=== PATIENT | male | born 1995 | race Caucasian/White ===

== ENCOUNTER 2018-07-31 12:10 | Emergency (ER) | payer OTHER ==
[~2018-07-31 12:10] MED LIST: HYDR-653 PO; INSU100I SQ; INSU100I28 SQ; LISI5TAB25 PO
--- NOTE | 2018-07-31 12:19 | ER Report ---
History and Physical Time Seen By MD: 12:19 Hx. of Stated Complaint: pt has sharp right sided back and chest pain. pt reports trouble breathing. HPI/ROS CHIEF COMPLAINT: Chest pain HISTORY OF PRESENT ILLNESS: 23-year-old male patient presents to emergency room with complaint of right-sided chest pain. Patient states pain has been going on for approximately one hour prior to arrival. Patient states that he has not take n any medication for this. He states that he was in the process of cleaning his room and had pain that started in his back and radiated to the chest. Patient states the pain in his chest and his back or tight. He denies having any shortness of breath. He denies having any fevers, chills, nausea, vomiting or diarrhea. Patient states pain is worse when he takes a deep breath. Patient denies any history of any heart or lung problems. REVIEW OF SYSTEMS: Respiratory: As noted above Cardiovascular: As noted above Gastrointestinal: No vomiting, no abdominal pain. Musculoskeletal: No back pain. Allergies: Coded Allergies: No Known Drug Allergies (Unverified , 11/20/14) Home Meds Active Scripts Cyclobenzaprine Hcl (CYCLOBENZAPRINE HCL) 10 Mg Tablet, 10 MG PO TID PRN for MUSCLE SPASMS, #15 TAB Prov:LOU LI 07/31/18 Hydrocodone Bit/Acetaminophen (NORCO 5-325 TABLET) 1 Each Tablet, 1 EACH PO Q4H PRN for PAIN, #12 Prov:DANIELLA MORALES DO 11/20/14 Reported Medications Lisinopril (LISINOPRIL) 5 Mg Tablet, 5 MG PO QDAY 11/17/14 Insulin Lispro (HUMALOG KwikPen 100 UNIT/ML (PATIENT OWN)) 100 Unit/Ml Injs, 1004 UNIT SQ before meals 04/28/12 Past Medical/Surgical History Patient has a past medical history of celiac disease, type 1 diabetes, alcohol use. Patient has surgical history of a hernia repair, deviated septum surgery, tonsillectomy. Reviewed Nurses Notes: Yes Hx Smoking: No Smoking Status: Never Smoker Hx Substance Use Disorder: No Hx Alcohol Use: Yes (RARE) Constitutional Vital Sign - Last 24 Hours 07/31/18 07/31/18 07/31/18 07/31/18 12:10 12:14 12:15 12:30 Temp 98.8 Pulse ??? 76 Resp 16 B/P (MAP) 130/87 130/87 (101) 124/85 (98) Pulse Ox 93 07/31/18 07/31/18 07/31/18 07/31/18 12:40 13:00 13:10 13:30 Pulse ??? 89 Resp 12 B/P (MAP) 116/81 (93) 106/65 (79) Pulse Ox 95 07/31/18 07/31/18 13:40 13:49 Pulse 69 Resp 9 B/P (MAP) 118/68 (85) Pulse Ox 97 Physical Exam General Appearance: The patient is alert, has no immediate need for airway protection and no current signs of toxicity. Respiratory: Chest is non tender, lungs are clear to auscultation. Cardiac: regular rate and rhythm Gastrointestinal: Abdomen is soft and non tender, no masses, bowel sounds normal. Musculoskeletal: Neck: Neck is supple and non tender. Back: Patient does have some tenderness to the paraspinal muscles to the right side of the thoracic spine. Extremities have full range of motion and are non tender. Skin: No rashes or lesions. DIFFERENTIAL DIAGNOSIS: After history and physical exam differential diagnosis was considered for chest pain including but not limited to myocardial ischemia, pericarditis pulmonary embolus, chest wall pain, pleural inflammation and pulmonary infectious causes. Medical Decision Making Data Points Result Diagram: 07/31/18 0000 07/31/18 0000 Laboratory Hematology Test 07/31/18 00:00 Red Blood Count 5.25 M/uL (4.00-5.60) Mean Corpuscular Volume 91.3 fL (80.0-96.0) Mean Corpuscular Hemoglobin 31.4 pg (26.0-33.0) Mean Corpuscular Hemoglobin Concent 34.4 g/dL (32.0-36.0) Red Cell Distribution Width 13.1 % (11.5-14.5) Mean Platelet Volume 9.6 fL (7.2-11.1) Neutrophils (%) (Auto) 50.7 % (39.4-72.5) Lymphocytes (%) (Auto) 33.0 % (17.6-49.6) Monocytes (%) (Auto) 8.5 % (4.1-12.4) Eosinophils (%) (Auto) 5.5 % (0.4-6.7) Basophils (%) (Auto) 2.3 % (0.3-1.4) Nucleated RBC Relative Count (auto) 0.1 /100WBC Neutrophils # (Auto) 3.0 K/uL (2.0-7.4) Lymphocytes # (Auto) 2.0 K/uL (1.3-3.6) Monocytes # (Auto) 0.5 K/uL (0.3-1.0) Eosinophils # (Auto) 0.3 K/uL (0.0-0.5) Basophils # (Auto) 0.1 K/uL (0.0-0.1) Nucleated RBC Absolute Count (auto) 0.01 K/uL D-Dimer Quantitative (PE/DVT) < 0.27 ug/ml (0-0.50) Sodium Level 140 mmol/L (137-145) Potassium Level 4.5 mmol/L (3.5-5.0) Chloride Level 104 mmol/L (98-107) Carbon Dioxide Level 25 mmol/L (22-30) Blood Urea Nitrogen 19 mg/dl (9-21) Creatinine 1.00 mg/dl (0.66-1.25) Glomerular Filtration Rate Calc > 60.0 Random Glucose 141 mg/dl (75-110) Calcium Level 10.0 mg/dl (8.4-10.2) Total Bilirubin 0.6 mg/dl (0.2-1.3) Aspartate Amino Transf (AST/SGOT) 32 U/L (0-35) Alanine Aminotransferase (ALT/SGPT) 46 U/L (0-56) Alkaline Phosphatase 133 U/L (0-126) Troponin I < 0.012 ng/ml Total Protein 8.2 g/dl (6.3-8.2) Albumin 4.8 g/dl (3.5-5.0) Chemistry Test 07/31/18 00:00 White Blood Count 6.0 k/uL (4.5-11.0) Red Blood Count 5.25 M/uL (4.00-5.60) Hemoglobin 16.5 g/dL (14.0-18.0) Hematocrit 47.9 % (42.0-52.0) Mean Corpuscular Volume 91.3 fL (80.0-96.0) Mean Corpuscular Hemoglobin 31.4 pg (26.0-33.0) Mean Corpuscular Hemoglobin Concent 34.4 g/dL (32.0-36.0) Red Cell Distribution Width 13.1 % (11.5-14.5) Platelet Count 245 K/uL (150-450) Mean Platelet Volume 9.6 fL (7.2-11.1) Neutrophils (%) (Auto) 50.7 % (39.4-72.5) Lymphocytes (%) (Auto) 33.0 % (17.6-49.6) Monocytes (%) (Auto) 8.5 % (4.1-12.4) Eosinophils (%) (Auto) 5.5 % (0.4-6.7) Basophils (%) (Auto) 2.3 % (0.3-1.4) Nucleated RBC Relative Count (auto) 0.1 /100WBC Neutrophils # (Auto) 3.0 K/uL (2.0-7.4) Lymphocytes # (Auto) 2.0 K/uL (1.3-3.6) Monocytes # (Auto) 0.5 K/uL (0.3-1.0) Eosinophils # (Auto) 0.3 K/uL (0.0-0.5) Basophils # (Auto) 0.1 K/uL (0.0-0.1) Nucleated RBC Absolute Count (auto) 0.01 K/uL D-Dimer Quantitative (PE/DVT) < 0.27 ug/ml (0-0.50) Glomerular Filtration Rate Calc > 60.0 Calcium Level 10.0 mg/dl (8.4-10.2) Total Bilirubin 0.6 mg/dl (0.2-1.3) Aspartate Amino Transf (AST/SGOT) 32 U/L (0-35) Alanine Aminotransferase (ALT/SGPT) 46 U/L (0-56) Alkaline Phosphatase 133 U/L (0-126) Troponin I < 0.012 ng/ml Total Protein 8.2 g/dl (6.3-8.2) Albumin 4.8 g/dl (3.5-5.0) Coagulation Test 07/31/18 00:00 D-Dimer Quantitative (PE/DVT) < 0.27 ug/ml EKG/Imaging EKG Interpretation 12 lead EKG: Rhythm: normal sinus rhythm with sinus arrhythmia, ventricular rate of 78 bpm [place]: normal QRS: normal ST segments: normal Imaging CHEST PA AND LAT Additional pertinent History: Chest pain COMPARISON STUDIES: none FINDINGS: Support lines and catheters: None Lungs and Pleura: Lung altman well expanded with no infiltrates or consolidati ons. No parenchymal mass lesions are seen. There are no effusions Heart and vasculature: Negative. Mellissa and Mediastinum: Negative. Bones and Chest wall: Negative. Upper Abdomen: Negative. IMPRESSION: 1. Negative chest for acute cardiopulmonary disease. Report Dictated By: Lowell Durán MD at 07/31/2018 12:48 PM Report E-Signed By: Lowell Durán MD at 07/31/2018 12:49 PM ED Course/Re-evaluation ED Course Patient was admitted to an exam room, history and physical were obtained. Differential diagnoses were considered. On examination lungs are clear, heart is regular, abdomen is soft nontender. Patient did have some tenderness to the ri ght paraspinal muscles along the back. A CBC, CMP, chest x-ray, EKG, troponin, d-dimer were done. Chest x-ray was negative, EKG showed a normal sinus rhythm with a sinus arrhythmia. Labs were unremarkable with a negative d-dimer and troponin. On reevaluation patient states he did feel slightly better. I asked him about trying muscle relaxer, as I believe that this is likely due to muscle spasm in his back. We did go ahead and do that. He had some relief with that. We will go ahead and discharge him at this time with a limited supply of muscle relaxer. Patient verbalized understanding and agreement with plan. Decision to Disposition Date: Jul 31, 2018 Decision to Disposition Time: 13:43 Depart Departure Latest Vital Signs Vital Signs Date Time Temp Pulse Resp B/P (MAP) Pulse Ox O2 Delivery O2 Flow Rate FiO2 07/31/18 13:49 118/68 (85) 07/31/18 13:40 69 9 97 07/31/18 12:14 98.8 Impression: Primary Impression: Chest pain Additional Impression: Muscle spasm Condition: Improved Disposition: HOME OR SELF-CARE New Scripts Cyclobenzaprine Hcl (CYCLOBENZAPRINE HCL) 10 Mg Tablet 10 MG PO TID PRN for MUSCLE SPASMS, #15 TAB Prov: LOU LI 07/31/18 Patient Instructions: Chest Pain (ED) Additional Instructions: Limit activity by pain. No heavy lifting. Return to the ER if condition worsens. You may take Tylenol or Ibuprofen as needed for pain. Follow up with your primary care provider in the next week. Get plenty of rest. Problem Qualifiers Primary Impression: Chest pain Chest pain type: other chest pain Qualified Codes: R07.89 - Other chest pain LOU LI Jul 31, 2018 12:19
[2018-07-31] MEDS ORDERED: NS(*) 0.9% 1000 ML BAG 1,000 ML IV ONE (12:24)
[2018-07-31] MEDS ORDERED: ASPIRIN 81 MG CHEW PO ONE (12:25)
--- NOTE | 2018-07-31 12:38 | EKG ---
FACILITY: [facility] PATIENT NAME: WHITNEY DEL TORO : [id number] MR: [id number] V: [id number] EXAM DATE: ORDERING PHYSICIAN: LOU LI TECHNOLOGIST: CONNER Test Reason : CHEST PAIN Blood Pressure : / mmHG Vent. Rate : 078 BPM Atrial Rate : 078 BPM P-R Int : 116 ms QRS Dur : 092 ms QT Int : 366 ms P-R-T Axes : 034 075 016 degrees QTc Int : 417 ms Normal sinus rhythm with sinus arrhythmia Normal ECG No previous ECGs available Confirmed by TALITA TOBAR ([id number]) on 07/31/2018 10:05:01 PM Referred By: WESTLEY Confirmed By:TALITA TOBAR
[2018-07-31 12:44] LABS: PLATELET COUNT, AUTOMATED 245 K/uL (150-450)
--- NOTE | 2018-07-31 12:53 | RADIOLOGY IMAGING REPORT ---
[facility] PATIENT NAME: Kolton Truong : 1995 MR: [id number] V: [id number] EXAM DATE: ORDERING PHYSICIAN: LOU LI TECHNOLOGIST: [facility] Patient: Kolton Truong : 1995 Visit/Account:[id number] Date of Sevice: 07/31/2018 CHEST PA AND LAT Additional pertinent History: Chest pain COMPARISON STUDIES: none FINDINGS: Support lines and catheters: None Lungs and Pleura: Lung altman well expanded with no infiltrates or consolidations. No parenchymal ma ss lesions are seen. There are no effusions Heart and vasculature: Negative. Mellissa and Mediastinum: Negative. Bones and Chest wall: Negative. Upper Abdomen: Negative. IMPRESSION: 1. Negative chest for acute cardiopulmonary disease. Report Dictated By: Lowell Durán MD at 07/31/2018 12:48 PM Report E-Signed By: Lowell Durán MD at 07/31/2018 12:49 PM WSN:[id number]
[2018-07-31] MEDS ORDERED: ORPHENADRINE 60MG/2ML INJ IVP ONE (13:15)
[2018-07-31] MEDS ORDERED: CYCL10TA29 PO (13:42)
[2018-07-31 13:49] VITALS: BP 118/68
== END 2018-07-31 13:54 | disposition home or self-care (01) ==
LOC: ER 12:16
DX: R07.89 Other chest pain (principal); M62.830 Muscle spasm of back
CPT/HCPCS: 71046; 84484; 85025; 85379; 93005; 96361; 96374; 99284; J2360; J7030; 82040; 82247; 82310; 82374; 82435; 82565; 82947; 84075; 84132; 84155; 84295; 84450; 84460; 84520

== ENCOUNTER → 2019-01-25 | Outpatient (CLI) | payer OTHER ==
[~2019-01-25] MED LIST changes: +CYCL10TA29 PO
== END ==
LOC: LAB 13:53
PROVIDERS: ATTEND Family Medicine
DX: Z11.1 Encounter for screening for respiratory tuberculosis (principal)
CPT/HCPCS: 36415; 86480